=== PATIENT | male | born 1960 | race Caucasian/White ===

== ENCOUNTER → 2018-04-03 | Outpatient (CLI) | payer OTHER ==
[~2018-04-03] MED LIST: NABUMETONE500 MG PO; PERCOCET 5/3251 TAB PO
== END | disposition home or self-care (01) ==
LOC: EKG 08:47
DX: D64.89 Other specified anemias (principal); D68.8 Other specified coagulation defects; I10 Essential (primary) hypertension

== ENCOUNTER → 2019-10-22 | Outpatient (CLI) | payer OTHER | END | disposition home or self-care (01) | LOC: MRI 10-21 12:15 | PROVIDERS: ATTEND Orthopaedic Surgery | DX: M25.561 Pain in right knee (principal); M25.562 Pain in left knee | CPT/HCPCS: 73718 ==